=== PATIENT | female | born 1990 | race Caucasian/White ===

== ENCOUNTER 2019-12-04 10:32 | Emergency (ER) | payer SELFPAY ==
[~2019-12-04] VITALS: Ht 154.9 cm; Wt 75.0 kg
[2019-12-04 12:44] VITALS: BP 117/71
== END 2019-12-04 12:48 | disposition home or self-care (01) ==
LOC: M ED 10:32 → EDBD 10:32 → M ED 12:48
DX: R55 Syncope and collapse (principal); S80.01XA Contusion of right knee, initial encounter; V48.4XXA Person boarding or alighting a car injured in noncollision transport accident, initial encounter; Y92.89 Other specified places as the place of occurrence of the external cause